=== PATIENT | male | born 1995 | race Two or more races ===

== ENCOUNTER 2019-03-25 14:11 | Emergency (ER) | payer OTHER ==
[2019-03-25] MEDS ORDERED: Ketorolac 30 MG/ML SDV IVPUSH ONE (14:55)
[2019-03-25] MEDS ORDERED: Sodium Chloride 0.9% 10 ML Syringe FLUSH PRN (14:55)
[2019-03-25] MEDS ORDERED: diphenhydrAMINE 50 MG/ML SDV IVPUSH ONE (14:58)
[2019-03-25] MEDS ORDERED: Metoclopramide 10 MG/2 ML SDV IVPUSH ONE (14:58)
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
--- NOTE | 2019-03-25 15:55 | CT ---
Head CT Technique: Multiple axial sections through the brain were obtained. Intravenous contrast was not utilized. Comparison: Previous intracranial images not available. Findings: Chronic subdural hematoma/hygroma noted on the right side which is of low density. This has an approximate thickness of 1 cm. Finding slightly effaces the right lateral ventricle and causes minimal midline shift of about 2 mm. Sulci over the adjacent convexities are also effaced. No acute intracranial hemorrhage is seen. No other abnormal parenchymal densities are seen. Bone window settings were reviewed which showed the visualized mastoid sinuses and paranasal sinuses to appear clear. No acute calvarial abnormality is seen. Impression: 1. Chronic appearing subdural hematoma/hygroma on the right side. This has thickness of around 1 cm and causes effacement of the adjacent sulci over the convexities as well as mild effacement of the right lateral ventricle and minimal midline shift. Neurosurgical consultation suggested. 2. No acute intracranial abnormality is otherwise seen. Diagnostic code #5 This report was dictated in [place] Standard Time
== END 2019-03-25 16:38 | disposition home or self-care (01) ==
LOC: JD.ED 14:11
DX: G93.0 Cerebral cysts (principal); F17.210 Nicotine dependence, cigarettes, uncomplicated
CPT/HCPCS: 70450; 96374; 96375; 99284; J1200; J1885; J2765

== ENCOUNTER 2022-09-16 18:07 | Emergency (ER) | payer SELFPAY ==
[2022-09-16] MEDS ORDERED: HYDROmorphone 1 MG/ML Syringe IM ONE (18:25)
== END 2022-09-16 18:45 | disposition home or self-care (01) ==
LOC: JD.ED 18:07
DX: K08.89 Other specified disorders of teeth and supporting structures (principal); Z72.0 Tobacco use
CPT/HCPCS: 96372; 99282; J1170

== ENCOUNTER 2022-09-17 17:03 | Emergency (ER) | payer SELFPAY ==
[2022-09-17] MEDS ORDERED: HYDROmorphone 1 MG/ML Syringe IVPUSH ONE (17:48)
[2022-09-17] MEDS ORDERED: Sodium Chloride 0.9% 10 ML Syringe FLUSH PRN (17:48)
[2022-09-17] MEDS ORDERED: cefTRIAXone 2 GM in Sodium Chloride 0.9% 100 ML IV ONE (17:48)
[2022-09-17] MEDS ORDERED: Ketorolac 30 MG/ML SDV IVPUSH ONE (18:17)
== END 2022-09-17 18:35 | disposition home or self-care (01) ==
LOC: JD.ED 17:03
DX: K04.7 Periapical abscess without sinus (principal)
CPT/HCPCS: 41800; 96365; 96375; 99283; J0696; J1170; J1885; J3490; 10060; 99282